=== PATIENT | female | born 1955 | race Caucasian/White ===

== ENCOUNTER 2018-01-17 11:09 | Outpatient (CLI) | payer OTHER ==
[2018-01-17 12:42] LABS: Hemoglobin 14.3 g/dL (12.0-16.0); Mean Corpuscular HGB CONC 33.5 g/dL (32.0-36.0); Mean Corpuscular Hemoglobin 32.6 pg (27.0-31.0); Mean Corpuscular Volume 97.2 fl (81.0-99.0); Mean Platelet Volume 7.5 fL (7.4-10.4); Platelet Count 303 thou/uL (130-400); RBC Distribution Width 11.5 % (11.5-14.5); Red Blood Cell (RBC) Count 4.37 mill/uL (4.20-5.40)
[2018-01-17 13:01] LABS: Anion Gap 11 mmol/L (10-20); BUN (Urea Nitrogen) 15 mg/dL (9.8-20.1); Calc. Creatinine Clearance 0 mL/min (70-130); Calcium 9.5 mg/dL (7.8-10.44); Carbon Dioxide 26 mmol/L (23-31); Chloride 108 mmol/L (98-107); Estimated GFR-MDRD 86; Glucose 93 mg/dL (80-115); Potassium 4.3 mmol/L (3.5-5.1); Sodium 141 mmol/L (136-145)
--- NOTE | 2018-01-17 23:50 | EKG ---
Test Reason : Blood Pressure : / mmHG Vent. Rate : 063 BPM Atrial Rate : 063 BPM P-R Int : 176 ms QRS Dur : 098 ms QT Int : 416 ms P-R-T Axes : 068 -62 077 degrees QTc Int : 425 ms Normal sinus rhythm Left axis deviation Incomplete right bundle branch block Abnormal ECG No previous ECGs available Confirmed by BATSHEVA SMITH, DR. Mena ([id number]) on 01/17/2018 11:49:57 PM Referred By: KLAUS Confirmed By:DR. Trina HERMAN MD
== END 2018-01-17 11:10 | disposition home or self-care (01) ==
LOC: LABBT 11:09
PROVIDERS: ATTEND Neurological Surgery
DX: Z01.818 Encounter for other preprocedural examination (principal); M54.16 Radiculopathy, lumbar region; R94.31 Abnormal electrocardiogram [ECG] [EKG]; I45.10 Unspecified right bundle-branch block
CPT/HCPCS: 80048; 85027; 93005; 93010

== ENCOUNTER 2018-01-17 11:30 | Inpatient (IN) | payer OTHER ==
[2018-01-26] MEDS ORDERED: Sodium Chloride 0.9% 10 ML ONE (06:25)
[2018-01-26] MEDS ORDERED: CEFAZOLIN/Water 2 GM/20 ML SYRINGE ONE (06:34)
[2018-01-26] MEDS ORDERED: Fentanyl 100 MCG/2 ML VIAL ONE ×2 (07:01→09:18)
[2018-01-26] MEDS ORDERED: Promethazine HCl 25 MG/ML VIAL ONE (09:17)
--- NOTE | 2018-01-26 09:24 | OP ---
DATE OF PROCEDURE: 01/26/2018 SURGEON: Magdy Salmeron M.D. [employer] AGENT: Carson Laguerre PROCEDURES: L4-5 laminectomy, right facetectomy, discectomy, foraminotomy, interbody arthrodesis, in travertebral biomechanical device, local morselized autograft, demineralized bone matrix, posterior l ateral arthrodesis and pedicle screw instrumentation L4-L5. PROCEDURE IN DETAIL: The patient was brought to the operating room and intubated. She was rolled in the prone position on gel-filled chest rolls. Incision made exposing L4-5 bilaterally and our level was confirmed by x-ray. We performed a complete L5 and inferior L4 central laminectomy, completely decompressing the neural elements bilaterally. We next turned our attention to right L4-5 and perfor med a complete facetectomy, foraminotomy, and discectomy. The bony endplates of the disk space were decorticated for the purpose of arthrodesis and appropriately sized intravertebral biomechanical PEEK device was brought into the field, filled with demineralized bone matrix and local morselized autogr aft, and tapped into place securely at L4-5. Next, pedicle screws were placed at right L4 and right L5 using lateral fluoroscopic guidance and positioning was confirmed with x-ray. A tato was secured b etween the screws. Compression was applied and nuts were used for final tightening. The wound was t hen extensively irrigated, immaculate hemostasis was secured. A combination of demineralized bone an d local morselized autograft was laid over the left posterolateral surface for the purpose of arthrod esis. Vancomycin powder was applied and the wound was closed in anatomic layers.
[2018-01-26] MEDS ORDERED: Morphine 4 MG/ML VIAL ONE (10:28)
[2018-01-26] MEDS ORDERED: ePHEDrine/0.9% NaCl/PF SYRINGE 50 mg/10 ml ONE (14:44)
[2018-01-26] MEDS ORDERED: Lidocaine 1% PF 5 ML VIAL ONE (14:44)
[2018-01-26] MEDS ORDERED: Glycopyrrolate 0.2 MG/ML 5 ML SYRINGE ONE (14:44)
[2018-01-26] MEDS ORDERED: PHENYLEPHRINE-NS 100 MCG/ML 10 ML SYRINGE ONE (14:44)
[2018-01-26] MEDS ORDERED: PROPOFOL 200 MG/20 ML VIAL ONE (14:44)
[2018-01-26] MEDS ORDERED: Ondansetron HCl/PF 4 MG/2 ML Vial ONE (14:44)
== END 2018-01-26 11:45 | disposition home or self-care (01) | DRG 455 ==
LOC: SURG A 01-26 05:40 → EDSTATUS 01-26 11:30
PROVIDERS: ADMIT Neurological Surgery; ATTEND Neurological Surgery
PROC: 0SG00AJ Fusion of Lumbar Vertebral Joint with Interbody Fusion Device, Posterior Approach, Anterior Column, Open Approach (ICD-10-PCS; principal; 2018-01-26)
PROC: 0SG0071 Fusion of Lumbar Vertebral Joint with Autologous Tissue Substitute, Posterior Approach, Posterior Column, Open Approach (ICD-10-PCS; 2018-01-26)
PROC: 0ST20ZZ Resection of Lumbar Vertebral Disc, Open Approach (ICD-10-PCS; 2018-01-26)
DX: M48.061 Spinal stenosis, lumbar region without neurogenic claudication (principal); M54.16 Radiculopathy, lumbar region; Z88.2 Allergy status to sulfonamides
CPT/HCPCS: 76001; 96374; A4216; J2001; J2270; J2405; J2550; J2704; J3010; J3370; J3490

== ENCOUNTER 2018-02-09 10:14 | Outpatient (CLI) | payer OTHER ==
--- NOTE | 2018-02-09 11:42 | RAD ---
TWO VIEWS OF THE LUMBAR SPINE: DATE: 02/09/18. COMPARISON: None. HISTORY: Lumbar radicular pain, surgery on January 25. FINDINGS: Right-sided L4 and L5 pedicle screws are present with a vertically oriented interlocking tato. There is intervertebral disk device at the L4-5 level. Laminectomy changes are noted at L4-5. There is bi lateral L4-5 facet hypertrophic change. There is retrolisthesis of L3 on L4 measuring 8 mm. There i s disk space narrowing at L3-4 and L5-S1 with mild anterior osteophyte formation. IMPRESSION: Postoperative and degenerative changes within the lumbar spine as detailed above. POS: XIN
== END 2018-02-09 10:15 | disposition home or self-care (01) ==
LOC: TBSIIMAG 10:14
PROVIDERS: ATTEND Physician Assistant
DX: M47.26 Other spondylosis with radiculopathy, lumbar region (principal); M51.16 Intervertebral disc disorders with radiculopathy, lumbar region; M51.37 Other intervertebral disc degeneration, lumbosacral region; Z98.890 Other specified postprocedural states
CPT/HCPCS: 72100

== ENCOUNTER 2018-03-23 14:14 | Outpatient (CLI) | payer OTHER ==
--- NOTE | 2018-03-23 14:57 | RAD ---
TWO VIEWS LUMBAR SPINE: Date: 03-23-18 History: Follow up post-surgical changes lumbar spine. Comparison: 02-09-18 FINDINGS: Again noted are post-surgical changes at the L4-5 level with unilateral right side pedicular screws a nd posterior rods transfixing this level. Intradiscal prosthesis is stable in position at this level. There is no hardware complication seen. IMPRESSION: Stable post-surgical changes at the L4-5 level. POS: XIN
== END 2018-03-23 14:15 | disposition home or self-care (01) ==
LOC: TBSIIMAG 14:14
PROVIDERS: ATTEND Neurological Surgery
DX: M51.36 Other intervertebral disc degeneration, lumbar region (principal); Z98.890 Other specified postprocedural states
CPT/HCPCS: 72100

== ENCOUNTER 2018-06-20 09:08 | Outpatient (CLI) | payer OTHER ==
--- NOTE | 2018-06-20 11:33 | RAD ---
LUMBAR SPINE SERIES: Date: 06/20/18 INDICATION: Spondylolisthesis, lumbar region. Reference made to 03/23/18. FINDINGS: Grossly stable alignment of hardware, which provides posterior fusion of the L4-5 segments, with an i ntervening disc space prosthesis. There is mild retrolisthesis of L3 on L4, which is stable in appear ance. A slight degree of right convexity curvature is also similar. IMPRESSION: Stable postoperative lumbar spine. Retrolisthesis at L3-4 is grossly stable. POS: C
== END 2018-06-20 09:09 | disposition home or self-care (01) ==
LOC: TBSIIMAG 09:08
PROVIDERS: ATTEND Neurological Surgery
DX: M43.16 Spondylolisthesis, lumbar region (principal); Z98.1 Arthrodesis status
CPT/HCPCS: 72100

== ENCOUNTER 2018-11-22 10:23 | Outpatient (CLI) | payer OTHER ==
--- NOTE | 2018-11-22 10:47 | RAD ---
F2 views lumbar spine. HISTORY: Low back pain M54.5. AP and lateral views lumbar spine is obtained. Comparison made to a previous exam from 06/20/2018. Images demonstrate L4-5 surgical fusion with intervertebral disc hardware in place. There is been rig ht-sided L4 and L5 pedicle hardware placed. Surgical hardware is in good position. There is retrolisthesis of L3 on L4 with vacuum disc changes seen at this level. Anterior and posteri or osteophytes seen at L3-4 with vacuum disc changes seen at this level. The degree of spondylosis bae s increased compared to the previous exam from 2018. IMPRESSION: L4-5 lumbar spine fusion with L3-4 changes of spondylosis worsening since the previous ex am.
== END 2018-11-22 10:24 | disposition home or self-care (01) ==
LOC: TBSIIMAG 10:23
PROVIDERS: ATTEND Neurological Surgery
DX: M51.36 Other intervertebral disc degeneration, lumbar region (principal); M47.816 Spondylosis without myelopathy or radiculopathy, lumbar region; Z98.1 Arthrodesis status
CPT/HCPCS: 72100

== ENCOUNTER 2018-12-21 12:51 | Outpatient (CLI) | payer OTHER ==
--- NOTE | 2018-12-21 13:17 | RAD ---
2 views of lumbar spine History postop Comparison prior examination November 22, 2018 HISTORY: The right-sided interlumbar construct spanning L4 and L5 is unchanged. Laminectomy changes a t L4 and L5 are stable. Retrolisthesis of L3 on L4 with moderate disc degenerative disease is stable. No acute fractures evident. IMPRESSION: Stable exam
== END 2018-12-21 12:52 | disposition home or self-care (01) ==
LOC: TBSIIMAG 12:51
PROVIDERS: ATTEND Neurological Surgery
DX: M51.36 Other intervertebral disc degeneration, lumbar region (principal)
CPT/HCPCS: 72100

== ENCOUNTER 2020-12-15 14:28 | Outpatient (CLI) | payer MEDICARE, OTHER | END 2020-12-15 14:29 | disposition home or self-care (01) | LOC: SCSRAD 14:28 | PROVIDERS: ATTEND Family Medicine | DX: R05 Cough (principal) | CPT/HCPCS: 71046 ==